=== PATIENT | male | born 1995 | race Caucasian/White ===

== ENCOUNTER 2017-04-04 17:32 | Emergency (ER) | payer MEDICAID ==
[~2017-04-04] VITALS: Ht 162.6 cm; Wt 59.0 kg
[2017-04-04] MEDS ORDERED: TDAP DIPH,PERTUSS,TET VAC/PF 0.5 ML DISP.SYRIN IM ONE ×2 (18:08→18:15)
[2017-04-04] MEDS ORDERED: LIDOCAINE HCL 1% 20 ML VIAL TP ONE (18:15)
--- NOTE | 2017-04-04 18:23 | NUR ---
Patient discharged to home in stable conditon. Written and verbal after care instructions given to patient. Patient verbalizes understanding of instructions.
== END 2017-04-04 18:24 | disposition home or self-care (01) ==
LOC: ER 17:33
DX: S61.412A Laceration without foreign body of left hand, initial encounter (principal); W27.8XXA Contact with other nonpowered hand tool, initial encounter; Y93.89 Activity, other specified; Y92.89 Other specified places as the place of occurrence of the external cause; Y99.8 Other external cause status
CPT/HCPCS: 90715; A4217; A4663; J3490

== ENCOUNTER 2017-04-07 16:48 | Emergency (ER) | payer MEDICAID ==
[~2017-04-07] VITALS: Ht 172.7 cm; Wt 68.0 kg
--- NOTE | 2017-04-07 17:37 | NUR ---
Patient discharged to home in stable conditon. Written and verbal after care instructions given. Patient verbalizes understanding of instructions.PT WALKS IN STEADY GAIT.
== END 2017-04-07 17:38 | disposition home or self-care (01) ==
LOC: ER 16:49
DX: S61.412D Laceration without foreign body of left hand, subsequent encounter (principal); X58.XXXD Exposure to other specified factors, subsequent encounter
CPT/HCPCS: 99283; A4663

== ENCOUNTER 2017-04-07 21:50 | Emergency (ER) | payer MEDICAID ==
[~2017-04-07] VITALS: Ht 162.6 cm; Wt 59.0 kg
--- NOTE | 2017-04-07 22:55 | NUR ---
Laceration repair with dermabond done by Dr. Andrews. Pt stable for discharge per Dr. Andrews. Pt given ACI. Pt verbalized understanding of dc instructions. Pt ambulated out of ER with steady gait.
[2017-04-07 22:57] VITALS: BP 104/69
== END 2017-04-07 22:57 | disposition home or self-care (01) ==
LOC: ER 21:50
DX: S61.412A Laceration without foreign body of left hand, initial encounter (principal); V85.9XXA Unspecified occupant of special construction vehicle injured in nontraffic accident, initial encounter; Y93.89 Activity, other specified; Y92.89 Other specified places as the place of occurrence of the external cause; Y99.8 Other external cause status
CPT/HCPCS: A4217; A4663